=== PATIENT | female | born 1940 | race Caucasian/White ===

== ENCOUNTER → 2016-09-26 | Outpatient (CLI) | payer MEDICARE, OTHER ==
[~2016-09-26] MED LIST: ESTR0.5T PO; ESTR1TAB22 PO; HYDR-3816 PO; LISI-552 PO; METO100T2 PO; MULT-35 PO; OXYC-197 PO; SPIR1TAB PO; SPIR25TA3 PO; TRAM50TA2 PO
--- NOTE | 2016-09-27 17:45 | Diagnostic Imaging Report ---
Bilateral screening mammogram 2D views with tomosynthesis. The current study was also evaluated with a Computer Aided Detection (CAD) system. INDICATION: Screening. No current complaints stated on the questionnaire. COMPARISON: 09/15/15. FINDINGS: The breasts are composed of heterogeneously dense parenchyma which may decrease mammographic sensitivity. There are scattered benign-appearing calcifications seen bilaterally with no definite change. Allowing for technique and positional differences, no suspicious change is seen. IMPRESSION: Dense breasts with no definite change. ACR BI-RADS Category 2: Benign findings. Result letter will be mailed to the patient. Note: At least 10% of breast cancer is not imaged by mammography. Dictated by: Dictated on workstation # [id number]
== END ==
LOC: RAD 11:22
PROVIDERS: ATTEND Nurse Practitioner Family
DX: Z12.31 Encounter for screening mammogram for malignant neoplasm of breast (principal)
CPT/HCPCS: 77067

== ENCOUNTER → 2017-10-03 | Outpatient (CLI) | payer MEDICARE, OTHER ==
[~2017-10-03] MED LIST changes: +HYDR-34 PO; -HYDR-3816 PO; +METO100T12 PO; -METO100T2 PO; -SPIR25TA3 PO; +SPIR25TA5 PO
--- NOTE | 2017-10-05 14:24 | Diagnostic Imaging Report ---
Digital mammogram bilateral screening with 3-D tomosynthesis. This study was compared to the prior exams of 09/16/2016, 09/15/2015, and 02/25/2014. At this time, there are no current complaints. The current study was also evaluated with a Computer Aided Detection (CAD) system. FINDINGS: The fibroglandular tissue in both breasts is heterogeneously dense. This does limit the sensitivity of this exam. Overall, there does not appear to have been any significant change when compared to the prior study. No primary or secondary sign of malignancy is noted. 3D tomographic images fail to show any sign of malignancy. IMPRESSION: There is no radiographic evidence for malignancy. ACR BI-RADS Category 1: Negative. Result letter will be mailed to the patient. Note: At least 10% of breast cancer is not imaged by mammography. Dictated by: Dictated on workstation # [id number]
== END ==
LOC: RAD 11:39
PROVIDERS: ATTEND Nurse Practitioner Family
DX: Z12.31 Encounter for screening mammogram for malignant neoplasm of breast (principal)
CPT/HCPCS: 77067

== ENCOUNTER 2018-11-09 10:26 | Outpatient (CLI) | payer MEDICARE, OTHER ==
[~2018-11-09] VITALS: Ht 157.5 cm; Wt 72.6 kg
[~2018-11-09 10:26] MED LIST changes: -OXYC-197 PO; +OXYC1TAB87 PO
[2018-11-09] MEDS ORDERED: CEFEPIME 2,000 MG/SWFI 20 ML IV PUSH IV ONE ×2 (11:00)
[2018-11-09] MEDS ORDERED: CATHETER FLUSH 10 ML SYR IV PRN (11:00)
[2018-11-09] MEDS ORDERED: diphenhydrAMINE 50 MG/ML INJ (BENADRYL) IV ONE (11:00)
[2018-11-09] MEDS ORDERED: FAMOTIDINE 20MG/2ML IV (PEPCID) IV ONE (11:00)
[2018-11-09] MEDS ORDERED: methylPREDNISolone 125 MG (Solu-MEDROL) VIAL IV ONE (11:00)
[2018-11-09 11:19] VITALS: BP 139/73
== END 2018-11-09 11:50 | disposition home or self-care (01) ==
LOC: SDC 10:26
PROVIDERS: ATTEND Nurse Practitioner Family
DX: L03.113 Cellulitis of right upper limb (principal); T78.40XA Allergy, unspecified, initial encounter
CPT/HCPCS: 96374; 96375

== ENCOUNTER → 2018-12-04 | Outpatient (CLI) | payer MEDICARE, OTHER ==
--- NOTE | 2018-12-04 15:00 | Diagnostic Imaging Report ---
INDICATION: Routine screening. COMPARISON: 10/03/2017 and 09/26/2016. TECHNIQUE: 2D and 3D bilateral screening mammography was performed with CAD. FINDINGS: Both breasts are heterogeneously dense, limiting the sensitivity of mammography. There are innumerable calcifications throughout both breasts, significantly limiting evaluation. There are numerous circumscribed nodular densities in both breasts as well, likely owing to benign etiologies. No spiculated mass or malignant appearing microcalcifications are seen. The axillae are unremarkable. IMPRESSION: No mammographic features suspicious for malignancy are identified. ACR BI-RADS Category 2: Benign findings. Result letter will be mailed to the patient. Note: At least 10% of breast cancer is not imaged by mammography. Dictated by: Dictated on workstation # [id number]
== END ==
LOC: RAD 11:30
PROVIDERS: ATTEND Nurse Practitioner Family
DX: Z12.31 Encounter for screening mammogram for malignant neoplasm of breast (principal)
CPT/HCPCS: 77067

== ENCOUNTER → 2020-02-25 | Outpatient (CLI) | payer MEDICARE, OTHER ==
[~2020-02-25] MED LIST changes: -TRAM50TA2 PO; +TRM50T PO
--- NOTE | 2020-02-25 11:27 | Diagnostic Imaging Report ---
INDICATION: Postmenopausal. COMPARISON: None. FINDINGS: The bone mineral density of the hips and spine was measured. There are no prior studies available for comparison. The total T-score for the spine is -0.2. This value is within normal limits. The total T-score for the left hip is -1.5. This indicates osteopenia. The T-score for the right hip is -1.0. This is the lowest end of normal. The T-score for the right femoral neck is also -1.0. The T-score for the left femoral neck is -1.5. AP Spine L1-L4: [BMD (g/cm2): 1.181] [T-Score: -0.2] [Z-Score: 1.6] [BMD Previous: na] [BMD % Change: na] LT Hip Neck: [BMD (g/cm2): 0.825] [T-Score: -1.5] [Z-Score: 0.5] LT Hip Total: [BMD (g/cm2):0.879] [T-Score:-1.0] [Z-Score: 0.9] [BMD Previous: na] [BMD % Change: na] RT Hip Neck: [BMD (g/cm2):0.902] [T-Score:-1.0] [Z-Score:1.1] RT Hip Total: [BMD (g/cm2):0.950] [T-score:-0.5] [Z-Score:1.4] [BMD Previous:nan] [BMD % Change:na] *Indicates significant change from prior examination based on 95% confidence level. World Health Organization criteria for BMD interpretation classify patients as Normal (T-score at or above -1.0), Osteopenic (T-score between -1.0 and -2.5) or Osteoporotic (T-score at or below -2.5). LIMITATIONS AND MODIFICATION: None. FRACTURE RISK (FRAX SCORE): The ten year probability of (%): Major Osteoporotic Fracture: [19.4] Hip Fracture: [4.2] IMPRESSION: 1. The bone mineral density of the spine, the right hip and the right femoral neck is within normal limits, although the T-score values for the right hip and femoral neck are at the lowest end of normal. 2. There is osteopenia of the left hip and left femoral neck. 3. See below National Osteoporosis Foundation guidelines on when to potentially initiate pharmacologic therapy. Based on the National Osteoporosis Foundation Guidelines, pharmacologic treatment should be initiated in any of the following, unless clinical conditions suggest otherwise: * Any patient with prior fragility fracture of the hip or vertebrae. A spine fracture indicates 5X risk for subsequent spine fracture and 2X risk for subsequent hip fracture. * Osteoporosis (T-score <-2.5). * Postmenopausal women and men age 50 and older with low bone mass/osteopenia (T-score between -1.0 and -2.5) by DXA and 10-year major osteoporotic fracture greater than 20% or a 10-year probability of hip fracture greater than 3%. These fracture risks are supplied above in the FRAX score, if applicable. * Clinician judgement and/or patient preferences may indicate treatment for people with 10-year fracture probabilities above or below these levels. Dictated by: Dictated on workstation # [id number]
--- NOTE | 2020-02-25 21:21 | Diagnostic Imaging Report ---
EXAM: Digital mammogram, bilateral screening. COMPARISONS: This study was compared to the prior exams of 12/04/2018, 10/03/2017 and 09/26/2016. At this time, there are no current complaints. The current study was also evaluated with a Computer Aided Detection (CAD) system. FINDINGS: The fibroglandular tissue in both breasts is dense. This does limit the sensitivity of this exam. Overall, there does not appear to have been any significant change when compared to the prior study. No primary or secondary sign of malignancy is noted. IMPRESSION: There is no radiographic evidence for malignancy. ACR BI-RADS Category 1: Negative. Result letter will be mailed to the patient. Note: At least 10% of breast cancer is not imaged by mammography. Dictated by: Dictated on workstation # [id number]
== END ==
LOC: RAD 10:00
PROVIDERS: ATTEND Family Medicine
DX: Z12.31 Encounter for screening mammogram for malignant neoplasm of breast (principal); E89.41 Symptomatic postprocedural ovarian failure; E55.9 Vitamin D deficiency, unspecified; M85.88 Other specified disorders of bone density and structure, other site; Z78.0 Asymptomatic menopausal state
CPT/HCPCS: 77063; 77067; 77080

== ENCOUNTER 2020-04-29 05:41 | Outpatient (RCR) | payer MEDICARE, OTHER ==
[~2020-04-29] VITALS: Ht 157.5 cm; Wt 68.2 kg
[~2020-04-29 05:41] MED LIST changes: -LISI-552 PO; +LISI20TA26 PO
== END 2020-04-29 09:37 | disposition home or self-care (01) ==
LOC: PREOP 05:41
PROVIDERS: ATTEND Specialist
DX: Z53.9 Procedure and treatment not carried out, unspecified reason (principal); H25.11 Age-related nuclear cataract, right eye

== ENCOUNTER 2020-05-06 05:41 | Outpatient (RCR) | payer MEDICARE, OTHER | END 2020-05-06 11:23 | disposition home or self-care (01) | LOC: PREOP 05:41 | PROVIDERS: ATTEND Specialist | DX: Z01.812 Encounter for preprocedural laboratory examination (principal); H25.11 Age-related nuclear cataract, right eye; Z20.822 Contact with and (suspected) exposure to COVID-19 | CPT/HCPCS: 87635 ==

== ENCOUNTER 2020-05-08 07:37 | Day surgery (SDC) | payer MEDICARE, OTHER ==
[~2020-05-08] VITALS: Ht 57.5 cm; Wt 68.2 kg
[2020-05-08] MEDS ORDERED: TIMOLOL MALEATE 0.5% 5 ML (TIMOPTIC) BTL OU PRN (07:45)
[2020-05-08] MEDS ORDERED: POVIDONE (BETADINE) OPHTH SOLN 5% 30 ML OP ONE (07:45)
[2020-05-08] MEDS ORDERED: LIDOCAINE PF 1% 2 ML VIAL IR PRN (07:45)
[2020-05-08] MEDS ORDERED: MOXIFLOXACIN OPHTH SOLN 5 MG/ML 0.3 ML SYRINGE OP ONE (07:45)
[2020-05-08] MEDS: TETRACAINE 0.5% OPHTH SOLN 4 ML BTL (SINGLE DOSE ONLY) OU PRN ×4 (07:54→08:13)
[2020-05-08 07:59] VITALS: BP 134/70
[2020-05-08] MEDS: PHENYLEPHRINE 10% OPHTH (NEO-SYN) 5 ML BTL OU SCH ×3 (08:02→08:12)
[2020-05-08] MEDS: TROPICAMIDE 1% OPH SOLN (MYDRIACYL) 15 ML BTL OP SCH ×3 (08:02→08:13)
[2020-05-08] MEDS ORDERED: MIDAZOLAM 2 MG/2 ML (VERSED) VIAL ONE (08:13)
--- NOTE | 2020-05-08 08:34 | Ophthalmologist Pre-Op Note ---
Pre-Operative Progress Note H&P Reviewed The H&P was reviewed, patient examined and no changes noted. Date H&P Reviewed: May 08, 2020 Time H&P Reviewed: 08:34 Pre-Op Dx Cataract, Right Eye DANIELE MEMBRENO MD May 08, 2020 08:34
--- NOTE | 2020-05-08 09:00 | Ophthalmology Operative Report ---
Cataract removal/placement IOL PREOPERATIVE DIAGNOSIS: Cataract Right Eye POSTOPERATIVE DIAGNOSIS: Cataract Right Eye PROCEDURE: Cataract removal and placement of posterior chamber implant, right eye SURGEON: Gene Membreno ANESTHESIA: Topical with sedation COMPLICATIONS: None ESTIMATED BLOOD LOSS: Minimal DESCRIPTION OF PROCEDURE: After proper informed consent was obtained, the patient, a 79 female, was taken to the Operating Room and the right eye was anesthetized with tetracaine. The right eye was then prepped and draped in the usual manner. A wire lid speculum was placed. A paracentesis was made at the left hand position. Preservative free lidocaine was injected into the anterior chamber followed by viscoelastic. A clear corneal incision was made in the temporal position. A capsulorrhexis was preformed and the central nuclear and cortical material were removed. The posterior capsule was polished and David 21.0 AU00T0 IOL was placed into the capsular bag. The residual viscoelastic was aspirated and balanced saline solution was injected into the anterior chamber. Moxifloxacin was injected into the anterior chamber. The wound was checked and found to be water tight. The patient tolerated the procedure well without complications. GENE MEMBRENO MD May 08, 2020 09:00
[2020-05-08 09:05] VITALS: BP 118/68
[2020-05-08] MEDS ORDERED: acetaZOLAMIDE ER 500 MG CAP (DIAMOX SEQUELS) PO ONE (12:30)
--- NOTE | 2020-05-08 13:02 | Anesthesia-General Post-Op ---
MAC Patient Condition Mental Status/LOC: Same as Preop Cardiovascular: Satisfactory Nausea/Vomiting: Absent Respiratory: Satisfactory Pain: Controlled Complications: Absent Post Op Complications Complications None Follow Up Care/Instructions Patient Instructions None needed. Anesthesiology Discharge Order Discharge Order Patient was seen this morning after the procedure and she was doing well, no complaints, stable vital signs, no apparent adverse anesthesia problems. TRINA KELLER DO May 08, 2020 13:02
== END 2020-05-08 09:05 ==
LOC: SDC 07:37
PROVIDERS: ATTEND Specialist
DX: H25.11 Age-related nuclear cataract, right eye (principal); I10 Essential (primary) hypertension; Z79.899 Other long term (current) drug therapy; Z90.710 Acquired absence of both cervix and uterus; Z85.828 Personal history of other malignant neoplasm of skin
CPT/HCPCS: 66984; V2632

== ENCOUNTER → 2021-06-29 | Outpatient (CLI) | payer MEDICARE, OTHER ==
--- NOTE | 2021-06-29 16:01 | Diagnostic Imaging Report ---
INDICATION: Routine screening. COMPARISON: 02/25/2020 and 12/04/2018. TECHNIQUE: 2D and 3D bilateral screening mammography was performed with CAD. FINDINGS: Both breasts are heterogeneously dense, limiting the sensitivity of mammography. Innumerable benign-appearing calcifications are scattered throughout both breasts, similar to the prior study. There are some nodular densities in both breasts which appear stable. No dominant mass or malignant-appearing microcalcifications are seen. The axillae are unremarkable. IMPRESSION: No mammographic features suspicious for malignancy are identified. ACR BI-RADS Category 2: Benign findings. Result letter will be mailed to the patient. Note: At least 10% of breast cancer is not imaged by mammography. Dictated by: Dictated on workstation # [id number]
== END ==
LOC: RAD 13:00
PROVIDERS: ATTEND Nurse Practitioner Family
DX: Z12.31 Encounter for screening mammogram for malignant neoplasm of breast (principal)
CPT/HCPCS: 77063; 77067